=== PATIENT | female | born 1965 | race Caucasian/White ===

== ENCOUNTER 2025-02-07 12:27 | Emergency (ER) | payer MEDICAID, SELFPAY ==
[2025-02-07] VITALS (9 sets, daily range): BP systolic 103–144; BP diastolic 68–113; PULSE 76–98; RESP 16–19; TEMP 36.6–36.8; O2SAT 93–100; BMI 29.2
--- NOTE | 2025-02-07 14:12 | ED_ITS ---
Discharge Plan Disposition Patient Disposition: Home, Self-Care Condition: Fair Prescriptions Prescriptions: New hydrocodone-acetaminophen 5-325 mg tablet 1 tab PO Q12H PRN (Reason: pain) Qty: 10 0RF Referrals Follow up/Referrals: Provider,MD Shannan [Primary Care Provider] - See instructions Wagner Mazariegos MD [Physician] - See instructions Activity Restrictions/Add. Instructions Additional Instructions/Restrictions: Dr. Mazariegos Friday 10am Clinical Impressions Clinical Impression: Mass of right lung, Back pain, COPD (chronic obstructive pulmonary disease) Print Language Print Language: Hungarian Discharge ED Provider: Niru Rivera General Adult HPI <JAIME Giles - Last Filed: 02/07/25 17:48> General Chief complaint: PAIN Stated complaint: AO 12/2024 Neck/Back pain, SOB Time Seen by Provider: 02/07/25 14:12 Mode of Arrival: Ambulatory Source of Information: Patient Limitations: No Limitations History of Present Illness HPI narrative: 59-year-old female presents to the emergency department with a 1 month history of worsening shortness of breath, neck pain and back pain after a fall that occurred in December 2024, unknown day. Patient describes it as a mechanical fall, however patient is somewhat of a poor historian, and does not regularly seek health care, has data deficient history of COPD, only on albuterol inhaler, been taking as prescribed/as needed, she is current everyday smoker, she describes the fall as she was coughing , when she fell out of her chair face planting on the ground , she denies any fever chills chest pain, does endorse some swelling around her supraclavicular region, and worsening shortness of breath outside of her baseline, as well as worsening neck and back pain outside of her baseline. Other past medical history consistent with previous tubal ligation and previous cholecystectomy, patient denies any abdominal pain nausea vomiting constipation diarrhea, no hematuria hematochezia melena hemoptysis, denies any other urinary type symptomatology. Patient denies any alcohol or drug use initial triage vitals unremarkable. Onset (ago): month(s) Related Data Previous Rx's ?Medication ?Instructions ?Recorded hydrocodone 5 mg-acetaminophen 325 1 tab PO Q12H PRN pain #10 tabs 02/07/25 mg tablet Allergies Allergy/AdvReac Type Severity Reaction Status Date / Time Penicillins Allergy Swelling Verified 02/07/25 14:11 of Lip/Tongue/Throat aspirin AdvReac Vomiting Verified 02/07/25 14:11 PFSH <JAIME Giles - Last Filed: 02/07/25 17:48> [facility] Disclaimer: The information contained in this section may have been updated after the patient was seen, as this information can be updated by other users. Social History (Updated 02/07/25 @ 17:48 by JAIME Giles) Smoking Status: Current every day smoker alcohol intake: never current occupational status: other Travel in the last 8 weeks?: None Have you lived/traveled outside [place] in past 30 days?: No Contact w/someone who lives/traveled outside US past 30 days?: No Exposure to someone with infectious disease in past 14 days?: No Do you have a fever (greater than 100.4 F or 38 C)?: No Have you tested positive for COVID-19?: No Exposed to someone with COVID-19 in past 14 days?: No Do you have a sore throat?: No Do you have a cough?: No Do you have any weakness?: No Do you have any diarrhea?: No Are you experiencing any unusual bleeding?: No Do you have any muscle aches/pain?: No Do you have any abdominal pain?: No Are you experiencing loss of taste or smell?: No <JAIME Giles - Last Filed: 02/07/25 17:48> ROS Obtained: Yes All systems reviewed & no additional complaints except as documented Physical Exam <JAIME Giles - Last Filed: 02/07/25 17:48> General General appearance: alert and in no apparent distress Head Head exam: atraumatic and normocephalic Eye Eye exam: Present PERRL and EOMI ENT ENT exam: Present mucous membranes moist Neck Neck exam: Present lymphadenopathy and other (There is some what appears to be some supraclavicular lymphadenopathy/area of raised lesion noted bilaterally left worse than right,); Absent tenderness Chest Chest inspection: Present normal inspection and symmetric chest wall rise Respiratory Respiratory exam: Present normal lung sounds bilaterally and wheezes; Absent respiratory distress Cardiovascular Cardiovascular exam: Present regular rate and normal rhythm Abdominal Exam Abdominal exam: Present soft; Absent tenderness, guarding, rebound or rigidity Extremities Exam Extremities exam: Present normal inspection Back Exam Back exam: Present full ROM, tenderness and paraspinal tenderness Comment: There is paraspinal tenderness noted to the mid thoracic spine and lower lumbar spine, negative spinal tenderness to palpation to the cervical T-spine or L- spine no step-offs or deformities Neurological Exam Neurological exam: Present alert and oriented X3 Psychiatric Psychiatric exam: Present normal affect Skin Skin exam: Present warm and dry Medical Decision Making <JAIME Giles - Last Filed: 02/07/25 17:48> Medical Records Medical records reviewed: Yes I reviewed the patient's medical records. Screening: Per USPSTF and CDC recommendations, given the prevalence of disease in our region, it is our hospital?s policy to screen for HIV and viral Hepatitis for all patients aged 18 and over and those with ongoing risk factors. Enzo Inquiry Pt receiving controlled substance: Yes Enzo was queried for this patient: Yes Risks and benefits of using a controlled substance: were discussed with pt by me Vital Signs: 02/07/25 13:33 02/07/25 14:11 02/07/25 14:18 Temperature 98 F Temperature Source Oral Pulse Rate 82 79 Pulse Rate [Left] 85 Respiratory Rate 18 Blood Pressure 137/78 142/78 H Blood Pressure [Right Arm] 137/78 Blood Pressure Mean [Right Arm] 97 Blood Pressure Source Automatic Cuff Automatic Cuff Blood Pressure Source [Right Arm] Automatic Cuff Blood Pressure Position Sitting Blood Pressure Position [Right Arm] Sitting 02 Sat by Pulse Oximetry 100 98 Oxygen Delivery Method Room Air Room Air 02/07/25 15:40 02/07/25 16:16 02/07/25 17:18 Temperature Temperature Source Pulse Rate 77 80 94 H Pulse Rate [Left] Respiratory Rate 16 Blood Pressure 127/79 103/68 L 109/76 L Blood Pressure [Right Arm] Blood Pressure Mean [Right Arm] Blood Pressure Source Automatic Cuff Blood Pressure Source [Right Arm] Blood Pressure Position Sitting Blood Pressure Position [Right Arm] 02 Sat by Pulse Oximetry 99 93 L 97 Oxygen Delivery Method Room Air Room Air Room Air 02/07/25 17:24 02/07/25 17:31 02/07/25 17:50 Temperature 98.2 F Temperature Source Oral Pulse Rate 98 H 76 81 Pulse Rate [Left] Respiratory Rate 19 Blood Pressure 126/82 140/113 H 144/98 H Blood Pressure [Right Arm] Blood Pressure Mean [Right Arm] Blood Pressure Source Automatic Cuff Blood Pressure Source [Right Arm] Blood Pressure Position Blood Pressure Position [Right Arm] 02 Sat by Pulse Oximetry 98 98 Oxygen Delivery Method Room Air Room Air Room Air Lab Data Lab results reviewed: Yes I reviewed the patient's lab results. Lab Results 02/07/25 14:25: WBC 11.7 H, RBC 4.31, Hgb 13.6, Hct 39.9, MCV 92.6, MCH 31.6 H, MCHC 34.1, RDW 13.5, Plt Count 323, MPV 10.0, Neut % (Auto) 72.8, Lymph % (Auto) 16.6, Hutchinson % (Auto) 7.6, Eos % (Auto) 0.7, Baso % (Auto) 0.9, Neut # (Auto) 8.5 H, Lymph # (Auto) 1.9, Hutchinson # (Auto) 0.9, Eos # (Auto) 0.1, Baso # (Auto) 0.1, S odium 132 L, Potassium 4.1, Chloride 91 L, Carbon Dioxide 36 H, Anion Gap 9.1, BUN 11, Creatinine 0.80, Estimated Creat Clear 91, Estimated GFR 74, Est GFR ( Amer) 89, Glucose 203 H, Calcium 10.6 H, Magnesium 1.4 L, Total Bilirubin 0.8, AST 37 H, ALT 28, Alkaline Phosphatase 148 H, Troponin I < 0.01, NT-Pro-B Natriuret Pep 307 H, Total Protein 7.8, Albumin 4.3, Globulin 3.5 H, Albumin/Globulin Ratio 1.2, HCV Ab ARIA w/Rflx PCR Qn Negative, HIV Ag/Ab Combo Qual Negative 02/07/25 14:25 02/07/25 14:25 Orders (Tests/Meds): ED MEDICATIONS Discontinued Medications Generic Name Dose Route Start Last Admin Trade Name Freq PRN Reason Stop Dose Admin Iopamidol 75 ml 02/07/25 15:50 02/07/25 15:53 Iopamidol-370 (76%);100ml Bottle IV 02/07/25 15:51 75 ml ONCE ONE Administration Sodium Chloride 10 ml 02/07/25 15:50 02/07/25 15:53 Sodium Chloride 0.9% 10ml Syr (Rad Only) IV 03/09/25 15:49 10 ml NEEDED PRN Administration Maintain IV Site ORDERS Category Date Time Status CT cervical spine wo con Stat Cat Scan 02/07/25 14:[address] chest w con Stat Cat Scan 02/07/25 14:[address] head/brain wo con Stat Cat Scan 02/07/25 14:[address] lumbar spine wo con Stat Cat Scan 02/07/25 14:[address] thoracic spine wo con Stat Cat Scan 02/07/25 14:19 Completed XR chest portable Stat Exams 02/07/25 14:19 Taken Complete Blood Count Auto Diff Stat Lab 02/07/25 14:25 Completed Comprehensive Metabolic Panel Stat Lab 02/07/25 14:25 Completed Cytology Routine Lab 02/07/25 17:14 Ordered HIV Combo Stat Lab 02/07/25 14:25 Completed Hepatitis C Ab Qual. W/ RFX Stat Lab 02/07/25 14:25 Completed Magnesium Stat Lab 02/07/25 14:25 Completed NT Pro Brain Natriuretic Pep. Stat Lab 02/07/25 14:25 Completed Troponin I Stat Lab 02/07/25 14:25 Completed Medical Decision Narrative: 59-year-old female presents the emergency department with shortness of air neck and back pain, and other medical complaints see HPI for detail past medical history, differential diagnose include but not limited to, cervicalgia, acute thoracic myofascial strain, acute lumbar sacral strain, COPD exacerbation, pneumonia, lung malignancy, metastatic disease, pathological compression fracture, cardiac arrhythmia, electrolyte disturbance among others. I discussed this patient's case with attending physician Will obtain basic laboratory studies, chest x-ray, CT chest with contrast, CT cervical spine without, T-spine without, L-spine without and head without contrast, will obtain EKG, magnesium level, troponin, proBNP. I reviewed the patient's EKG at 1413, NSR 82 bpm PA interval QT interval within normal limits there is no STEMI. There is possible old Q wave in V3 V4. CBC is notable for leukocytosis 11.7 otherwise unremarkable. CMP is notable for mild hyponatremia at 132, hypercapnia at 36, hyperglycemia 203, hypercalcemia 10.6, hypomagnesia 1.4, ALP is elevated, at 148 which is normal, troponin within normal limits, proBNP is minimally elevated within normal limits, at 307. I reviewed the patient's CT head without contrast on the corresponding radiologic report, there is no acute intracranial abnormality I reviewed the patient's CT cervical spine without contrast along the corresponding radiologic report, no evidence of acute traumatic injury, diffuse cervical spondylosis, right upper lung airspace disease, bilateral supraclavicular mediastinal lymphadenopathy and mass. I reviewed the patient's CT lumbar spine without contrast along the corresponding radiologic report, superior endplate compression fracture at L4 age-indeterminate no canal compromise noted, lucency seen throughout multiple vertebral bodies and sacrum worrisome for possible metastatic disease, correlate with MRI for further characterization. Reviewed the patient's CT thoracic spine without contrast on the corresponding radiologic report, infiltrating mediastinal mass supraclavicular bilateral lymphadenopathy, right upper lobe airspace opacity, see concurrently from chest CT, no acute fracture or dislocation noted, several subtle lucencies are seen within multiple thoracic vertebral bodies these include T12 and L1 possible metastatic disease. I reviewed the patient's CT chest with contrast along the corresponding radiologic report, large infiltrating mediastinal mass with right hilar and bilateral supraclavicular adenopathy worrisome for neoplasm possible lymphoma, the mass severely narrows the upper lobe pulmonary artery, and it may be occluded there is also narrowing of the lower lobe arteries although these appear patent, no evidence of pulmonary embolism noted, the mass also narrows the or occludes right upper lobe bronchus, patchy diffuse airspace disease seen in the right upper and right middle lobe which may be postobstructive in nature, possible thrombus in the left jugular vein that is nonocclusive correlate with ultrasound as clinically indicated, moderate right-sided pleural effusion. I will reach out to on-call inspection and testing supervisor for further recommendations. Attending physician , spoke to the on-call inspection and testing supervisor , at approximately 5:15 PM, he recommends possible ED thoracentesis for expedition of the patient's care with moderate pleural effusion, will send pleural fluid off, he believes patient can follow-up as outpatient for new diagnosis of lung mass, with possible diffuse metastatic disease since she is hemodynamically stable at this time. I along with the attending physician discussed need for thoracentesis with the patient at the bedside, patient declined at this time she states that she would like to go home to my dog , and would like to pursue outpatient follow-up with inspection and testing supervisor, this was relayed to pulmonology, pulmonology will see the patient this upcoming week. Patient was given strict ED return precautions, patient will follow-up with inspection and testing supervisor in the outpatient clinic as well as PCP, will send in p.o. narcotic for pain per attending physician for pain and new onset cancer diagnosis, patient voiced understanding of the current treatment plan/discharge plan. <Niru Rivera, DO - Last Filed: 02/07/25 20:43> Vital Signs: 02/07/25 13:33 02/07/25 14:11 02/07/25 14:18 Temperature 98 F Temperature Source Oral Pulse Rate 82 79 Pulse Rate [Left] 85 Respiratory Rate 18 Blood Pressure 137/78 142/78 H Blood Pressure [Right Arm] 137/78 Blood Pressure Mean [Right Arm] 97 Blood Pressure Source Automatic Cuff Automatic Cuff Blood Pressure Source [Right Arm] Automatic Cuff Blood Pressure Position Sitting Blood Pressure Position [Right Arm] Sitting 02 Sat by Pulse Oximetry 100 98 Oxygen Delivery Method Room Air Room Air 02/07/25 15:40 02/07/25 16:16 02/07/25 17:18 Temperature Temperature Source Pulse Rate 77 80 94 H Pulse Rate [Left] Respiratory Rate 16 Blood Pressure 127/79 103/68 L 109/76 L Blood Pressure [Right Arm] Blood Pressure Mean [Right Arm] Blood Pressure Source Automatic Cuff Blood Pressure Source [Right Arm] Blood Pressure Position Sitting Blood Pressure Position [Right Arm] 02 Sat by Pulse Oximetry 99 93 L 97 Oxygen Delivery Method Room Air Room Air Room Air 02/07/25 17:24 02/07/25 17:31 02/07/25 17:50 Temperature 98.2 F Temperature Source Oral Pulse Rate 98 H 76 81 Pulse Rate [Left] Respiratory Rate 19 Blood Pressure 126/82 140/113 H 144/98 H Blood Pressure [Right Arm] Blood Pressure Mean [Right Arm] Blood Pressure Source Automatic Cuff Blood Pressure Source [Right Arm] Blood Pressure Position Blood Pressure Position [Right Arm] 02 Sat by Pulse Oximetry 98 98 Oxygen Delivery Method Room Air Room Air Room Air Lab Data Lab Results 02/07/25 14:25: WBC 11.7 H, RBC 4.31, Hgb 13.6, Hct 39.9, MCV 92.6, MCH 31.6 H, MCHC 34.1, RDW 13.5, Plt Count 323, MPV 10.0, Neut % (Auto) 72.8, Lymph % (Auto) 16.6, Hutchinson % (Auto) 7.6, Eos % (Auto) 0.7, Baso % (Auto) 0.9, Neut # (Auto) 8.5 H, Lymph # (Auto) 1.9, Hutchinson # (Auto) 0.9, Eos # (Auto) 0.1, Baso # (Auto) 0.1, S odium 132 L, Potassium 4.1, Chloride 91 L, Carbon Dioxide 36 H, Anion Gap 9.1, BUN 11, Creatinine 0.80, Estimated Creat Clear 91, Estimated GFR 74, Est GFR ( Amer) 89, Glucose 203 H, Calcium 10.6 H, Magnesium 1.4 L, Total Bilirubin 0.8, AST 37 H, ALT 28, Alkaline Phosphatase 148 H, Troponin I < 0.01, NT-Pro-B Natriuret Pep 307 H, Total Protein 7.8, Albumin 4.3, Globulin 3.5 H, Albumin/Globulin Ratio 1.2, HCV Ab ARIA w/Rflx PCR Qn Negative, HIV Ag/Ab Combo Qual Negative Orders (Tests/Meds): ED MEDICATIONS Discontinued Medications Generic Name Dose Route Start Last Admin Trade Name Freq PRN Reason Stop Dose Admin Iopamidol 75 ml 02/07/25 15:50 02/07/25 15:53 Iopamidol-370 (76%);100ml Bottle IV 02/07/25 15:51 75 ml ONCE ONE Administration Sodium Chloride 10 ml 02/07/25 15:50 02/07/25 15:53 Sodium Chloride 0.9% 10ml Syr (Rad Only) IV 03/09/25 15:49 10 ml NEEDED PRN Administration Maintain IV Site ORDERS Category Date Time Status CT cervical spine wo con Stat Cat Scan 02/07/25 14:[address] chest w con Stat Cat Scan 02/07/25 14:[address] head/brain wo con Stat Cat Scan 02/07/25 14:[address] lumbar spine wo con Stat Cat Scan 02/07/25 14:[address] thoracic spine wo con Stat Cat Scan 02/07/25 14:19 Completed XR chest portable Stat Exams 02/07/25 14:19 Taken Complete Blood Count Auto Diff Stat Lab 02/07/25 14:25 Completed Comprehensive Metabolic Panel Stat Lab 02/07/25 14:25 Completed Cytology Routine Lab 05/12/25 17:14 Ordered HIV Combo Stat Lab 02/07/25 14:25 Completed Hepatitis C Ab Qual. W/ RFX Stat Lab 02/07/25 14:25 Completed Magnesium Stat Lab 02/07/25 14:25 Completed NT Pro Brain Natriuretic Pep. Stat Lab 02/07/25 14:25 Completed Troponin I Stat Lab 02/07/25 14:25 Completed Medical Decision Narrative: 59-year-old female presents the emergency department with shortness of air neck and back pain, and other medical complaints see HPI for detail past medical history, differential diagnose include but not limited to, cervicalgia, acute thoracic myofascial strain, acute lumbar sacral strain, COPD exacerbation, pneumonia, lung malignancy, metastatic disease, pathological compression fracture, cardiac arrhythmia, electrolyte disturbance among others. I discussed this patient's case with attending physician Will obtain basic laboratory studies, chest x-ray, CT chest with contrast, CT cervical spine without, T-spine without, L-spine without and head without contrast, will obtain EKG, magnesium level, troponin, proBNP. I reviewed the patient's EKG at 1413, NSR 82 bpm PA interval QT interval within normal limits there is no STEMI. There is possible old Q wave in V3 V4. CBC is notable for leukocytosis 11.7 otherwise unremarkable. CMP is notable for mild hyponatremia at 132, hypercapnia at 36, hyperglycemia 203, hypercalcemia 10.6, hypomagnesia 1.4, ALP is elevated, at 148 which is normal, troponin within normal limits, proBNP is minimally elevated within normal limits, at 307. I reviewed the patient's CT head without contrast on the corresponding radiologic report, there is no acute intracranial abnormality I reviewed the patient's CT cervical spine without contrast along the corresponding radiologic report, no evidence of acute traumatic injury, diffuse cervical spondylosis, right upper lung airspace disease, bilateral supraclavicular mediastinal lymphadenopathy and mass. I reviewed the patient's CT lumbar spine without contrast along the corresponding radiologic report, superior endplate compression fracture at L4 age-indeterminate no canal compromise noted, lucency seen throughout multiple vertebral bodies and sacrum worrisome for possible metastatic disease, correlate with MRI for further characterization. Reviewed the patient's CT thoracic spine without contrast on the corresponding radiologic report, infiltrating mediastinal mass supraclavicular bilateral lymphadenopathy, right upper lobe airspace opacity, see concurrently from chest CT, no acute fracture or dislocation noted, several subtle lucencies are seen within multiple thoracic vertebral bodies these include T12 and L1 possible metastatic disease. I reviewed the patient's CT chest with contrast along the corresponding radiologic report, large infiltrating mediastinal mass with right hilar and bilateral supraclavicular adenopathy worrisome for neoplasm possible lymphoma, the mass severely narrows the upper lobe pulmonary artery, and it may be occluded there is also narrowing of the lower lobe arteries although these appear patent, no evidence of pulmonary embolism noted, the mass also narrows the or occludes right upper lobe bronchus, patchy diffuse airspace disease seen in the right upper and right middle lobe which may be postobstructive in nature, possible thrombus in the left jugular vein that is nonocclusive correlate with ultrasound as clinically indicated, moderate right-sided pleural effusion. I will reach out to on-call inspection and testing supervisor for further recommendations. Attending physician , spoke to the on-call inspection and testing supervisor , at approximately 5:15 PM, he recommends possible ED thoracentesis for expedition of the patient's care with moderate pleural effusion, will send pleural fluid off, he believes patient can follow-up as outpatient for new diagnosis of lung mass, with possible diffuse metastatic disease since she is hemodynamically stable at this time. I along with the attending physician discussed need for thoracentesis with the patient at the bedside, patient declined at this time she states that she would like to go home to my dog , and would like to pursue outpatient follow-up with inspection and testing supervisor, this was relayed to pulmonology, pulmonology will see the patient this upcoming week. Patient was given strict ED return precautions, patient will follow-up with inspection and testing supervisor in the outpatient clinic as well as PCP, will send in p.o. narcotic for pain per attending physician for pain and new onset cancer diagnosis, patient voiced understanding of the current treatment plan/discharge plan. DO Miguel: I was consulted by the RAAD, and we discussed the complexity of the problems being addressed. I approved the treatment and management plan for this patient's care in the emergency department, thus performing a substantive portion of the medical decision making. I spoke with Dr. Mazariegos who recommended thoracentesis here to help expedite diagnosis and care given new diagnosis of mass with likely malignant effusion. I discussed this with the patient at length, however she declined stating that she needs to go home to her dog. She states she will follow-up and do these things on an outpatient basis. I did provide the patient with a short course of narcotic pain medication given cancer related pain as well as instructions for close follow-up with pulmonology. She was discharged with strict return precautions Niru Rivera DO <Alli Mora MD - Last Filed: 02/07/25 23:34> Vital Signs: 02/07/25 13:33 02/07/25 14:11 02/07/25 14:18 Temperature 98 F Temperature Source Oral Pulse Rate 82 79 Pulse Rate [Left] 85 Respiratory Rate 18 Blood Pressure 137/78 142/78 H Blood Pressure [Right Arm] 137/78 Blood Pressure Mean [Right Arm] 97 Blood Pressure Source Automatic Cuff Automatic Cuff Blood Pressure Source [Right Arm] Automatic Cuff Blood Pressure Position Sitting Blood Pressure Position [Right Arm] Sitting 02 Sat by Pulse Oximetry 100 98 Oxygen Delivery Method Room Air Room Air 02/07/25 15:40 02/07/25 16:16 02/07/25 17:18 Temperature Temperature Source Pulse Rate 77 80 94 H Pulse Rate [Left] Respiratory Rate 16 Blood Pressure 127/79 103/68 L 109/76 L Blood Pressure [Right Arm] Blood Pressure Mean [Right Arm] Blood Pressure Source Automatic Cuff Blood Pressure Source [Right Arm] Blood Pressure Position Sitting Blood Pressure Position [Right Arm] 02 Sat by Pulse Oximetry 99 93 L 97 Oxygen Delivery Method Room Air Room Air Room Air 02/07/25 17:24 02/07/25 17:31 02/07/25 17:50 Temperature 98.2 F Temperature Source Oral Pulse Rate 98 H 76 81 Pulse Rate [Left] Respiratory Rate 19 Blood Pressure 126/82 140/113 H 144/98 H Blood Pressure [Right Arm] Blood Pressure Mean [Right Arm] Blood Pressure Source Automatic Cuff Blood Pressure Source [Right Arm] Blood Pressure Position Blood Pressure Position [Right Arm] 02 Sat by Pulse Oximetry 98 98 Oxygen Delivery Method Room Air Room Air Room Air Lab Data Lab Results 02/07/25 14:25: WBC 11.7 H, RBC 4.31, Hgb 13.6, Hct 39.9, MCV 92.6, MCH 31.6 H, MCHC 34.1, RDW 13.5, Plt Count 323, MPV 10.0, Neut % (Auto) 72.8, Lymph % (Auto) 16.6, Hutchinson % (Auto) 7.6, Eos % (Auto) 0.7, Baso % (Auto) 0.9, Neut # (Auto) 8.5 H, Lymph # (Auto) 1.9, [place]inson # (Auto) 0.9, Eos # (Auto) 0.1, Baso # (Auto) 0.1, S odium 132 L, Potassium 4.1, Chloride 91 L, Carbon Dioxide 36 H, Anion Gap 9.1, BUN 11, Creatinine 0.80, Estimated Creat Clear 91, Estimated GFR 74, Est GFR ( Amer) 89, Glucose 203 H, Calcium 10.6 H, Magnesium 1.4 L, Total Bilirubin 0.8, AST 37 H, ALT 28, Alkaline Phosphatase 148 H, Troponin I < 0.01, NT-Pro-B Natriuret Pep 307 H, Total Protein 7.8, Albumin 4.3, Globulin 3.5 H, Albumin/Globulin Ratio 1.2, HCV Ab ARIA w/Rflx PCR Qn Negative, HIV Ag/Ab Combo Qual Negative Orders (Tests/Meds): ED MEDICATIONS Discontinued Medications Generic Name Dose Route Start Last Admin Trade Name Freq PRN Reason Stop Dose Admin Iopamidol 75 ml 02/07/25 15:50 02/07/25 15:53 Iopamidol-370 (76%);100ml Bottle IV 02/07/25 15:51 75 ml ONCE ONE Administration Sodium Chloride 10 ml 02/07/25 15:50 02/07/25 15:53 Sodium Chloride 0.9% 10ml Syr (Rad Only) IV 03/09/25 15:49 10 ml NEEDED PRN Administration Maintain IV Site ORDERS Category Date Time Status CT cervical spine wo con Stat Cat Scan 02/07/25 14:[address] chest w con Stat Cat Scan 02/07/25 14:[address] head/brain wo con Stat Cat Scan 02/07/25 14:[address] lumbar spine wo con Stat Cat Scan 02/07/25 14:[address] thoracic spine wo con Stat Cat Scan 02/07/25 14:19 Completed XR chest portable Stat Exams 02/07/25 14:19 Taken Complete Blood Count Auto Diff Stat Lab 02/07/25 14:25 Completed Comprehensive Metabolic Panel Stat Lab 02/07/25 14:25 Completed Cytology Routine Lab 02/07/25 17:14 Ordered HIV Combo Stat Lab 02/07/25 14:25 Completed Hepatitis C Ab Qual. W/ RFX Stat Lab 02/07/25 14:25 Completed Magnesium Stat Lab 02/07/25 14:25 Completed NT Pro Brain Natriuretic Pep. Stat Lab 02/07/25 14:25 Completed Troponin I Stat Lab 02/07/25 14:25 Completed Medical Decision Narrative: I was consulted by the RAAD, and we discussed the complexity of the problems being addressed. I approve the treatment and management plan for this patient's care in the emergency department, thus performing a substantive portion of the medical decision making. Due to patient's symptoms of shortness of breath, back pain in the setting of lymphadenopathy, there is concern for cancer/metastatic disease as a source of patient's symptoms and exam findings. Agree with workup below that includes CT imaging, laboratory studies to evaluate these concerns further. Patient's care was handed off to Dr. Rivera prior to completion of his workup. Alli Mora MD 59-year-old female presents the emergency department with shortness of air neck and back pain, and other medical complaints see HPI for detail past medical history, differential diagnose include but not limited to, cervicalgia, acute thoracic myofascial strain, acute lumbar sacral strain, COPD exacerbation, pneumonia, lung malignancy, metastatic disease, pathological compression fracture, cardiac arrhythmia, electrolyte disturbance among others. I discussed this patient's case with attending physician Will obtain basic laboratory studies, chest x-ray, CT chest with contrast, CT cervical spine without, T-spine without, L-spine without and head without contrast, will obtain EKG, magnesium level, troponin, proBNP. I reviewed the patient's EKG at 1413, NSR 82 bpm PA interval QT interval within normal limits there is no STEMI. There is possible old Q wave in V3 V4. CBC is notable for leukocytosis 11.7 otherwise unremarkable. CMP is notable for mild hyponatremia at 132, hypercapnia at 36, hyperglycemia 203, hypercalcemia 10.6, hypomagnesia 1.4, ALP is elevated, at 148 which is normal, troponin within normal limits, proBNP is minimally elevated within normal limits, at 307. I reviewed the patient's CT head without contrast on the corresponding radiologic report, there is no acute intracranial abnormality I reviewed the patient's CT cervical spine without contrast along the corresponding radiologic report, no evidence of acute traumatic injury, diffuse cervical spondylosis, right upper lung airspace disease, bilateral supraclavicular mediastinal lymphadenopathy and mass. I reviewed the patient's CT lumbar spine without contrast along the corresponding radiologic report, superior endplate compression fracture at L4 age-indeterminate no canal compromise noted, lucency seen throughout multiple vertebral bodies and sacrum worrisome for possible metastatic disease, correlate with MRI for further characterization. Reviewed the patient's CT thoracic spine without contrast on the corresponding radiologic report, infiltrating mediastinal mass supraclavicular bilateral lymphadenopathy, right upper lobe airspace opacity, see concurrently from chest CT, no acute fracture or dislocation noted, several subtle lucencies are seen within multiple thoracic vertebral bodies these include T12 and L1 possible metastatic disease. I reviewed the patient's CT chest with contrast along the corresponding radiologic report, large infiltrating mediastinal mass with right hilar and bilateral supraclavicular adenopathy worrisome for neoplasm possible lymphoma, the mass severely narrows the upper lobe pulmonary artery, and it may be occluded there is also narrowing of the lower lobe arteries although these appear patent, no evidence of pulmonary embolism noted, the mass also narrows the or occludes right upper lobe bronchus, patchy diffuse airspace disease seen in the right upper and right middle lobe which may be postobstructive in nature, possible thrombus in the left jugular vein that is nonocclusive correlate with ultrasound as clinically indicated, moderate right-sided pleural effusion. I will reach out to on-call inspection and testing supervisor for further recommendations. Attending physician , spoke to the on-call inspection and testing supervisor , at approximately 5:15 PM, he recommends possible ED thoracentesis for expedition of the patient's care with moderate pleural effusion, will send pleural fluid off, he believes patient can follow-up as outpatient for new diagnosis of lung mass, with possible diffuse metastatic disease since she is hemodynamically stable at this time. I along with the attending physician discussed need for thoracentesis with the patient at the bedside, patient declined at this time she states that she would like to go home to my dog , and would like to pursue outpatient follow-up with inspection and testing supervisor, this was relayed to pulmonology, pulmonology will see the patient this upcoming week. Patient was given strict ED return precautions, patient will follow-up with inspection and testing supervisor in the outpatient clinic as well as PCP, will send in p.o. narcotic for pain per attending physician for pain and new onset cancer diagnosis, patient voiced understanding of the current treatment plan/discharge plan. DO Miguel: I was consulted by the RAAD, and we discussed the complexity of the problems being addressed. I approved the treatment and management plan for this patient's care in the emergency department, thus performing a substantive portion of the medical decision making. I spoke with Dr. Mazariegos who recommended thoracentesis here to help expedite diagnosis and care given new diagnosis of mass with likely malignant effusion. I discussed this with the patient at length, however she declined stating that she needs to go home to her dog. She states she will follow-up and do these things on an outpatient basis. I did provide the patient with a short course of narcotic pain medication given cancer related pain as well as instructions for close follow-up with pulmonology. She was discharged with strict return precautions Niru Rivera DO Critical Care <JAIME Giles - Last Filed: 02/07/25 17:48> Critical Care Time Critical Care Time: No
--- NOTE | 2025-02-07 14:12 | ECG_ITS ---
APPROVED REPORT Exam: Resting ECG HR:82 bpm ECG Measurements Heart Rate 82 AXES RI 120 P 75 QRSd 85 QRS 116 QT 376 T 72 QTc 415 Conclusion SINUS RHYTHM POSSIBLE RIGHT VENTRICULAR HYPERTROPHY [SOME/ALL OF: PROMINENT R IN V1, LATE TRANSITION, RAD, PRESLEY, SSS] POSSIBLE ANTERIOR MYOCARDIAL INFARCTION , PROBABLY OLD [30 ms Q WAVE IN V3/V4, OR R < 0.2 mV IN V4] ABNORMAL ECG UNCONFIRMED REPORT Electronically signed by : AMI WAGNER, 02/08/2025 01:44:24
--- NOTE | 2025-02-07 14:19 | CT_ITS ---
PROCEDURE INFORMATION: Exam: CT Head Without Contrast Exam date and time: 02/07/2025 3:41 PM Age: 59 years old Clinical indication: Injury or trauma; Blunt trauma (contusions or hematomas); Consciousness not specified; Injury details: Bl, supraclavicular lymphadenopathy, [id number]; Additional info: Fall, head trauma TECHNIQUE: Imaging protocol: Computed tomography of the head without contrast. Radiation optimization: All CT scans at this facility use at least one of these dose optimization techniques: automated exposure control; mA and/or kV adjustment per patient size (includes targeted exams where dose is matched to clinical indication); or iterative reconstruction. COMPARISON: No relevant prior studies available. FINDINGS: Brain: Normal. No hemorrhage. Unremarkable white matter. No mass effect. Cerebral ventricles: No ventriculomegaly. Paranasal sinuses: Visualized sinuses are unremarkable. No fluid levels. Mastoid air cells: Visualized mastoid air cells are well aerated. Bones: Unremarkable. No acute fracture. Soft tissues: Unremarkable. IMPRESSION: No acute intracranial abnormality.
--- NOTE | 2025-02-07 14:19 | CT_ITS ---
PROCEDURE INFORMATION: Exam: CT Thoracic Spine Without Contrast Exam date and time: 02/07/2025 3:49 PM Age: 59 years old Clinical indication: Injury or trauma; Fall; Blunt trauma (contusions or hematomas); Injury date: 1 mth ago; Additional info: SOA, bl, fall 1 mo ago. Lymphadenopathy TECHNIQUE: Imaging protocol: Computed tomography of the thoracic spine without contrast. Radiation optimization: All CT scans at this facility use at least one of these dose optimization techniques: automated exposure control; mA and/or kV adjustment per patient size (includes targeted exams where dose is matched to clinical indication); or iterative reconstruction. COMPARISON: CT CERVICAL SPINE WO CON 02/07/2025 3:49 PM FINDINGS: Bones/joints: No acute fracture or dislocation noted. Several subtle lucencies are seen in multiple thoracic vertebral bodies. These include T12 and L1. Soft tissues: Unremarkable. Lymph nodes: Infiltrating mediastinal mass. Supraclavicular bilateral lymphadenopathy. IMPRESSION: 1. Infiltrating mediastinal mass. Supraclavicular bilateral lymphadenopathy. Right upper lobe airspace opacity. See concurrently performed chest CT. 2. No acute fracture or dislocation noted. 3. Several subtle lucencies are seen in multiple thoracic vertebral bodies. These include T12 and L1. Possible metastatic disease.
--- NOTE | 2025-02-07 14:19 | CT_ITS ---
PROCEDURE INFORMATION: Exam: CT Lumbar Spine Without Contrast Exam date and time: 02/07/2025 3:49 PM Age: 59 years old Clinical indication: Injury or trauma; Fall; Blunt trauma (contusions or hematomas); Injury date: 1 mth ago; Additional info: SOA, bl, fall 1 mo ago. Lymphadenopathy TECHNIQUE: Imaging protocol: Computed tomography of the lumbar spine without contrast. Radiation optimization: All CT scans at this facility use at least one of these dose optimization techniques: automated exposure control; mA and/or kV adjustment per patient size (includes targeted exams where dose is matched to clinical indication); or iterative reconstruction. COMPARISON: CT THORACIC SPINE WO CON 02/07/2025 3:49 PM FINDINGS: Bones/joints: Superior endplate compression fracture L4 age indeterminate. There are some subtle lucency seen at multiple vertebral bodies as well as the sacrum, these are worrisome for lytic disease. Soft tissues: Unremarkable. IMPRESSION: 1. Superior endplate compression fracture L4, age indeterminate. No canal compromise noted. 2. Lucency seen throughout multiple vertebral bodies and the sacrum worrisome for possible metastatic disease, correlate with MRI for further characterization.
--- NOTE | 2025-02-07 14:19 | CT_ITS ---
PROCEDURE INFORMATION: Exam: CT Chest With Contrast; Diagnostic Exam date and time: 02/07/2025 3:54 PM Age: 59 years old Clinical indication: Dyspnea; Additional info: SOA, supraclavicular lymphadenopathy, [id number] TECHNIQUE: Imaging protocol: Diagnostic computed tomography of the chest with contrast. Radiation optimization: All CT scans at this facility use at least one of these dose optimization techniques: automated exposure control; mA and/or kV adjustment per patient size (includes targeted exams where dose is matched to clinical indication); or iterative reconstruction. Contrast material: ISOVUE; Contrast volume: 75 ml; Contrast route: IV; COMPARISON: CT CERVICAL SPINE WO CON 02/07/2025 3:49 PM FINDINGS: Lungs: Diffuse airspace disease is noted in the right upper and right middle lobe. This may be postobstructive in nature. The mass may occlude the right upper lobe bronchus. Pleural spaces: Moderate-sized right-sided pleural effusion. Heart: Coronary artery calcium is present.. No cardiomegaly. No pericardial effusion. Mediastinal space: Large superior mediastinal mass extending into the region of the right hilum currently this measures 14.8 cm longitudinally by 7.2 x 6.0 cm axially, this is predominantly soft tissue attenuation but there is evidence of focal calcification. Lymph nodes: Bilateral supraclavicular lymphadenopathy. These measure 2.7 cm on the right and 2.3 cm on the left. Right hilar lymphadenopathy. Vasculature: There is a filling defect in the left jugular vein that may represent partial the obstructing thrombus. The superior vena cava is stretched and significantly attenuated in its mid segment although it appears to be patent more distally. The right pulmonary artery is significantly attenuated by the mass with only small branches going into the right lower and right middle lobe non are seen extending into the right upper lobe. Bones/joints: Unremarkable. No acute fracture. Soft tissues: Unremarkable. IMPRESSION: 1. Large infiltrating mediastinal mass with right hilar and bilateral supraclavicular lymphadenopathy worrisome for neoplasm, possible lymphoma. 2. The mass severely narrows the upper lobe pulmonary artery in it may be occluded, there is also narrowing of the lower lobe arteries although these appear patent. No evidence of pulmonary embolus noted. 3. The mass also narrows the or occludes the right upper lobe bronchus. 4. Patchy diffuse airspace disease seen in the right upper and right middle lobe which may be postobstructive in nature. 5. Possible thrombus within the left jugular vein nonocclusive. Correlate with ultrasound as clinically indicated. 6. Moderate right-sided pleural effusion.
--- NOTE | 2025-02-07 14:19 | CT_ITS ---
PROCEDURE INFORMATION: Exam: CT Cervical Spine Without Contrast Exam date and time: 02/07/2025 3:49 PM Age: 59 years old Clinical indication: Injury or trauma; Blunt trauma; Injury details: Bl, supraclavicular lymphadenopathy, [id number]; Additional info: * TECHNIQUE: Imaging protocol: Computed tomography of the cervical spine without contrast. Radiation optimization: All CT scans at this facility use at least one of these dose optimization techniques: automated exposure control; mA and/or kV adjustment per patient size (includes targeted exams where dose is matched to clinical indication); or iterative reconstruction. COMPARISON: CT HEAD/BRAIN WO CON 02/07/2025 3:41 PM FINDINGS: Bones: Diffuse cervical spondylosis is noted. Hypertrophic changes of the facet present bilaterally. Discs/Spinal canal/Neural foramina: Narrowing of multiple intervertebral disc spaces are seen. Moderate neural foraminal narrowing is also noted. Lungs: Right upper lung airspace disease.. Vasculature: No obvious traumatic injury is seen. Soft tissues: Bilateral supraclavicular lymphadenopathy, these lymph nodes measure up to 2.4 cm. Infiltrating upper mediastinal mass is also present. IMPRESSION: 1. No evidence of acute traumatic injury. 2. Diffuse cervical spondylosis. 3. Right upper lung airspace disease. 4. Bilateral supraclavicular and mediastinal lymphadenopathy and mass.
[2025-02-07 14:39] LABS: Basophils # 0.1 K/mm3 (0-0.2); Basophils % 0.9 % (0.1-2.0); Eosinophils # 0.1 Kmm3 (0.0-0.4); Eosinophils % 0.7 % (0.1-12.0); Hematocrit 39.9 % (37.0-47.0); Hemoglobin 13.6 g/dL (12.2-16.2); Immature Granulocytes # 0.16 10^3uL; Immature Granulocytes % 1.4 %; Lymphocytes # 1.9 K/mm3 (0.7-4.5); Lymphocytes % 16.6 % (10-50); Mean Corpuscular HGB Conc 34.1 g/dL (31.8-35.4); Mean Corpuscular Hemoglobin 31.6 pg (27.0-31.2); Mean Corpuscular Volume 92.6 fl (81-99); Monocytes # 0.9 K/mm3 (0.1-1.0); Monocytes % 7.6 % (1.7-9.3); Neutrophils # 8.5 K/mm3 (1.8-7.8); Neutrophils % 72.8 % (37.0-80.0); Nucleated Red Blood Cells # 0 10^3/uL; Nucleated Red Blood Cells % 0 %; Platelet Count 323 K/mm3 (142-424); Red Blood Count 4.31 M/mm3 (4.20-5.40); Red Cell Distribution Width 13.5 % (11.5-17.5); Red Cell Distribution Width-SD 46.2 fL; White Blood Count 11.7 K/mm3 (4.8-10.8)
[2025-02-07 14:49] LABS: Albumin Level 4.3 g/dl (3.5-5.0); Chloride 91 mmol/L (98-107); Potassium 4.1 mmoL/L (3.5-5.1); Sodium 132 mmol/L (136-145)
[2025-02-07 14:51] LABS: Alanine Aminotransferase 28 U/L (12-78); Aspartate Amino Transferase 37 U/L (14-36); Blood Urea Nitrogen 11 mg/dl (7-17); Creatinine Clearance Estimated 91 mL/min (50-200); Estimated Glomerular Filt Rate 74 ml/min (>60); GFR (African American) 89 ML/MIN (>60)
[2025-02-07 14:52] LABS: Albumin/Globulin Ratio 1.2 (1.1-1.8); Alkaline Phosphatase 148 U/L (38-126); Anion Gap 9.1 mEq/L (5-15); Bilirubin,Total 0.8 mg/dl (0.2-1.3); Calcium 10.6 mg/dl (8.4-10.2); Carbon Dioxide 36 mmol/L (22.0-30.0); Globulin 3.5 g/dL (1.3-3.2); Glucose 203 mg/dl (74-100); Magnesium 1.4 mg/dl (1.6-2.3); Total Protein,Serum 7.8 g/dl (6.3-8.2)
[2025-02-07 15:01] LABS: NT Pro Brain Natriuretic Pep. 307 pg/mL (0-125)
[2025-02-07 15:06] LABS: Troponin I < 0.01 ng/ml (0.00-0.034)
[2025-02-07 15:34] LABS: HIV Combo NEGATIVE (Negative)
[2025-02-07 15:42] LABS: Hepatitis C Ab Qual. W/ RFX NEGATIVE (Negative)
[2025-02-07] MEDS: SODIUM CHLORIDE 0.9% 10ML SYR (RAD ONLY) 10 ML IV (15:53)
[2025-02-07] MEDS: IOPAMIDOL-370 (76%);100ML BOTTLE 75 ML IV (15:53)
--- NOTE | 2025-02-07 17:14 | PC.NURSE ---
Dr Rivera s/w Dr Mazariegos for pulmonary consult.
--- NOTE | 2025-02-07 17:30 | PC.NURSE ---
Pt placed on 2L NC due to oxygen saturation being 87%
--- NOTE | 2025-02-07 17:36 | PC.NURSE ---
Dr. Rivera speaking w/ pt at this time
--- NOTE | 2025-02-07 17:43 | PC.NURSE ---
Provider to bedside.
== END 2025-02-07 18:00 | disposition home or self-care (01) ==
PROVIDERS: Physician Assistant; Emergency Provider Emergency Medicine
DX: J90 Pleural effusion, not elsewhere classified (principal); C34.91 Malignant neoplasm of unspecified part of right bronchus or lung; R06.02 Shortness of breath; E87.1 Hypo-osmolality and hyponatremia; F17.210 Nicotine dependence, cigarettes, uncomplicated; Z11.59 Encounter for screening for other viral diseases; Z11.4 Encounter for screening for human immunodeficiency virus [HIV]
CPT/HCPCS: 70450; 71045; 71260; 72125; 72128; 72131; 80053; 83735; 83880; 84484; 85025; 86803; 87389; 93005; 99285; Q9967

== ENCOUNTER 2025-02-09 10:39 | Outpatient (CLI) | payer MEDICAID, SELFPAY | END 2025-02-09 23:59 | disposition home or self-care (01) | PROVIDERS: PCP Family Medicine; Visit Provider Internal Medicine Pulmonary Disease | DX: R91.8 Other nonspecific abnormal finding of lung field (principal) | CPT/HCPCS: 87070; 87205 ==

== ENCOUNTER 2025-02-11 08:34 | Outpatient (CLI) | payer MEDICAID, SELFPAY ==
--- NOTE | 2025-02-11 09:00 | US_ITS ---
FINAL REPORT CLINICAL HISTORY: Effusion -- RT SIDE -- 750 ML REMOVED -- WALKER SANDOVAL FINDINGS: ULTRASOUND-GUIDED THORACENTESIS HISTORY: Right pleuraleffusion. ATTENDING PHYSICIAN: Dr. Hill PHYSICIAN TELEMETRY TECHNICIAN: Walker Reis PA-C TECHNIQUE: Informed consent was obtained from the patient. The indications and complications were discussed with the patient prior to beginning the procedure. This included, but was not limited to pain, bleeding, infection, and pneumothorax requiring chest tube placement. The right back was then prepped and draped in sterile fashion. 1% Lidocaine was used for local anesthesia. Utilizing sonographic guidance, a standard thoracentesis needle and sheath were inserted into the pleural space and approximately 750 mL of pleural fluid was successfully removed without complication. The patient tolerated the procedure well. Sample sent to lab for pre-arch studies. IMPRESSION: Technically successful sonographic guided right-sidedthoracentesis as above. Reviewed, Interpreted and Dictated by Bella Hill MD Transcribed by JAIME Blakc Authenticated and [facility]
[2025-02-11 09:05] VITALS: BP 153/83; PULSE 82; RESP 20; TEMP 37.1; O2SAT 94; BMI 32.9
--- NOTE | 2025-02-11 09:32 | PC.NURSE ---
When checking in patient, the patient was asked the question of any thoughts of harming yourself or others? patient responded yes . All questions in the marshall severity suicide assessment were answered with a no from patient. This RN then asked the question again if she had any thoughts or harming yourself and she repeated yes . This RN then asked her what that question meant to her and patient responded when I am at home I get really stressed, noises bother me, and I cry. I am just glad I have my dog. But I dont want to kill myself This RN asked patient if she spoke to her PCP or a behavioral health specialist about any of these issues at home and she revealed that she has an appointment with [facility] and she would be discussing this with them. This RN offered to reach out to Behavioral Health to set up an appointment for as well and patient and her sister declined due to transportation issues. This RN then offered [facility] services to patient and she declined that as well. Patient will be coming back to post-op after radiology procedure and this RN will provide a community resources packet to patient and sister.
--- NOTE | 2025-02-11 10:02 | XR_ITS ---
FINAL REPORT CLINICAL HISTORY: post thora right side FINDINGS: PA and lateral views of the chest are obtained. There is no prior exam for comparison. The heart is normal in size. There is a large right paratracheal and right hilar mass. Small right pleural effusion is noted. The lungs are clear. There is no pneumothorax postthoracentesis. IMPRESSION: No pneumothorax postthoracentesis. Large right paratracheal and right hilar mass. Reviewed, Interpreted and Dictated by Bella Hill MD Transcribed by Teena Nunez Authenticated and [facility]
[2025-02-11 10:18] VITALS: BP 148/75; PULSE 90; RESP 18; TEMP 36.6; O2SAT 96
[2025-02-11 10:33] VITALS: BP 133/87; PULSE 83; RESP 16; O2SAT 97
[2025-02-11 10:48] VITALS: BP 135/74; PULSE 83; RESP 16; O2SAT 95
[2025-02-11 11:03] VITALS: BP 137/76; PULSE 84; RESP 16; O2SAT 96
[2025-02-11 12:02] LABS: Source, Body Fld. Pleural Fluid
[2025-02-11 12:04] LABS: Appearance,Body Fld. Cloudy; RBC,Body Fluid 4 cells/uL (< 10 X 10^3); TNC,Body Fluid 2163 cells/uL (< 1000); Volume,Body Fld. 1750 mL
[2025-02-11 13:32] LABS: Mononuclear WBCs,Body Fluid 84 %; Polynuclear WBC,Body Fluid 16 %
[2025-02-12 16:34] LABS: Albumin, Body Fluid 2.7 g/dL (Not Estab.); LD, Body Fluid 240 IU/L (.); Protein, Body Fluid 4.4 g/dL (.)
== END 2025-02-11 11:18 | disposition home or self-care (01) ==
PROVIDERS: PCP Internal Medicine Pulmonary Disease; Visit Provider Internal Medicine Pulmonary Disease
DX: J90 Pleural effusion, not elsewhere classified (principal); R06.02 Shortness of breath
CPT/HCPCS: 32555; 71046; 82042; 83615; 84155; 87070; 89051

== ENCOUNTER 2025-02-16 11:52 | Outpatient (CLI) | payer MEDICAID, SELFPAY ==
[2025-02-16 12:27] LABS: Basophils # 0.1 K/mm3 (0-0.2); Basophils % 0.8 % (0.1-2.0); Eosinophils # 0.1 Kmm3 (0.0-0.4); Eosinophils % 1.3 % (0.1-12.0); Hematocrit 43.5 % (37.0-47.0); Hemoglobin 14.1 g/dL (12.2-16.2); Immature Granulocytes # 0.32 10^3uL; Immature Granulocytes % 3.4 %; Lymphocytes # 1.5 K/mm3 (0.7-4.5); Lymphocytes % 15.7 % (10-50); Mean Corpuscular HGB Conc 32.4 g/dL (31.8-35.4); Mean Corpuscular Hemoglobin 31.1 pg (27.0-31.2); Mean Corpuscular Volume 95.8 fl (81-99); Mean Platelet Volume 10.1 fl (7.4-10.4); Monocytes # 0.7 K/mm3 (0.1-1.0); Monocytes % 7.7 % (1.7-9.3); Neutrophils # 6.7 K/mm3 (1.8-7.8); Neutrophils % 71.1 % (37.0-80.0); Nucleated Red Blood Cells # 0 10^3/uL; Nucleated Red Blood Cells % 0 %; Platelet Count 234 K/mm3 (142-424); Red Blood Count 4.54 M/mm3 (4.20-5.40); Red Cell Distribution Width 14.4 % (11.5-17.5); Red Cell Distribution Width-SD 50.4 fL; White Blood Count 9.5 K/mm3 (4.8-10.8)
[2025-02-16 12:45] LABS: Albumin Level 4.1 g/dl (3.5-5.0); Chloride 94 mmol/L (98-107); Sodium 136 mmol/L (136-145)
[2025-02-16 12:48] LABS: Alanine Aminotransferase 32 U/L (12-78); Albumin/Globulin Ratio 1.1 (1.1-1.8); Alkaline Phosphatase 149 U/L (38-126); Aspartate Amino Transferase 42 U/L (14-36); Bilirubin,Total 0.5 mg/dl (0.2-1.3); Blood Urea Nitrogen 22 mg/dl (7-17); Calcium 11.4 mg/dl (8.4-10.2); Carbon Dioxide 38 mmol/L (22.0-30.0); Estimated Glomerular Filt Rate 51 ml/min (>60); GFR (African American) 62 ML/MIN (>60); Globulin 3.6 g/dL (1.3-3.2); Glucose 237 mg/dl (74-100); Total Protein,Serum 7.7 g/dl (6.3-8.2); Triglycerides 325 mg/dl (30-150); VLDL Cholesterol 65 mg/dL (0-40)
[2025-02-16 12:49] LABS: HDL Cholesterol 62 mg/dl (40-60)
[2025-02-16 12:59] LABS: Direct LDL Cholesterol 172.09 mg/dL (100-129)
[2025-02-16 13:05] LABS: Chol/HDL Ratio 5.6 (1-3.5); Cholesterol 348 mg/dl (140-200)
[2025-02-16 14:04] LABS: Hemoglobin A1C 7.9 % (4.0-6.0)
== END 2025-02-16 23:59 | disposition home or self-care (01) ==
LOC: LAB 11:53
PROVIDERS: PCP Family Medicine; Visit Provider Family Medicine
DX: Z00.00 Encounter for general adult medical examination without abnormal findings (principal)
CPT/HCPCS: 36415; 80053; 80061; 83036; 85025

== ENCOUNTER 2025-02-18 08:38 | Outpatient (CLI) | payer MEDICAID, SELFPAY ==
[2025-02-18 08:56] VITALS: BMI 28.3
--- NOTE | 2025-02-18 09:00 | CT_ITS ---
FINAL REPORT CLINICAL HISTORY: LEFT SUPRACLAVICAL LYMPH NODE FINDINGS: CT GUIDED LEFT SUPRACLAVICULAR MASS BIOPSY. HISTORY: Mediastinal mass, left supraclavicular mass/lymph nodes. ATTENDING PHYSICIAN: Dr. Ardon. PHYSICIAN [employer]S [employer] HUMANITIES COUNCIL DIRECTOR: Nargis rCuz PA-C. PROCEDURE: After informed consent was obtained and a time-out was performed, the patient was prepped and draped in usual sterile fashion over the left supraclavicular region. Utilizing local anesthesia and sterile technique with a coaxial system, access to lesion was obtained. Five 18-gauge core biopsies were performed. Post biopsy films demonstrate no evidence of acute complication. CONSCIOUS SEDATION: 1 mg of IV Versed and 25 mcg of Fentanyl were administered. Continuous vital sign monitoring was used. An RN was present during the sedation process. Overall sedation time was 30 minutes. The patient tolerated procedure well and left the department in good condition. IMPRESSION: Status post CT guided biopsy of a left supraclavicular mass/lymph nodes without immediate complication. Reviewed, Interpreted and Dictated by Abbie Ardon MD Transcribed by Nargis Cruz PA-C Authenticated and . [facility]
[2025-02-18 09:12] VITALS: BP 141/80; PULSE 65; RESP 20; TEMP 36.2; O2SAT 92
[2025-02-18 09:29] LABS: Basophils # 0.1 K/mm3 (0-0.2); Basophils % 1.3 % (0.1-2.0); Eosinophils # 0.1 Kmm3 (0.0-0.4); Eosinophils % 0.9 % (0.1-12.0); Hematocrit 44.8 % (37.0-47.0); Hemoglobin 14.5 g/dL (12.2-16.2); Immature Granulocytes # 0.24 10^3uL; Immature Granulocytes % 2.8 %; Lymphocytes # 1.4 K/mm3 (0.7-4.5); Lymphocytes % 16.7 % (10-50); Mean Corpuscular HGB Conc 32.4 g/dL (31.8-35.4); Mean Corpuscular Volume 95.9 fl (81-99); Mean Platelet Volume 10.5 fl (7.4-10.4); Monocytes # 0.6 K/mm3 (0.1-1.0); Monocytes % 7.4 % (1.7-9.3); Neutrophils % 70.9 % (37.0-80.0); Nucleated Red Blood Cells # 0 10^3/uL; Nucleated Red Blood Cells % 0 %; Platelet Count 187 K/mm3 (142-424); Red Blood Count 4.67 M/mm3 (4.20-5.40); Red Cell Distribution Width 14.4 % (11.5-17.5); Red Cell Distribution Width-SD 50.2 fL; White Blood Count 8.4 K/mm3 (4.8-10.8)
[2025-02-18 09:35] LABS: Chloride 95 mmol/L (98-107); Sodium 136 mmol/L (136-145)
[2025-02-18 09:36] LABS: Potassium 4.1 mmoL/L (3.5-5.1)
[2025-02-18 09:38] LABS: Blood Urea Nitrogen 22 mg/dl (7-17); Creatinine Clearance Estimated 76 mL/min (50-200); Estimated Glomerular Filt Rate 64 ml/min (>60); GFR (African American) 78 ML/MIN (>60)
[2025-02-18 09:39] LABS: Anion Gap 8.1 mEq/L (5-15); Calcium 11.5 mg/dl (8.4-10.2); Carbon Dioxide 37 mmol/L (22.0-30.0); Glucose 207 mg/dl (74-100)
[2025-02-18 09:41] LABS: INR 1.05 (0.9-1.1); Prothrombin Time 11.6 seconds (10.1-12.5)
[2025-02-18 10:50] VITALS: BP 123/73; PULSE 69; RESP 16; O2SAT 93
[2025-02-18 11:05] VITALS: BP 110/71; PULSE 62; RESP 16; O2SAT 92
[2025-02-18 11:20] VITALS: BP 115/76; PULSE 70; RESP 16; O2SAT 92
[2025-02-18 11:35] VITALS: BP 134/89; PULSE 63; RESP 16; O2SAT 92
[2025-02-18 11:50] VITALS: BP 127/82; PULSE 66; RESP 18; O2SAT 93
== END 2025-02-18 12:00 | disposition home or self-care (01) ==
PROVIDERS: PCP Family Medicine; Visit Provider Internal Medicine Medical Oncology
DX: R59.0 Localized enlarged lymph nodes (principal); I82.C29 Chronic embolism and thrombosis of unspecified internal jugular vein
CPT/HCPCS: 21550; 77012; 80048; 85025; 85610; J2250; J3010

== ENCOUNTER 2025-02-20 19:11 | Emergency (ER) | payer MEDICAID, SELFPAY ==
[2025-02-20] VITALS (9 sets, daily range): BP systolic 123–154; BP diastolic 74–94; PULSE 61–78; RESP 11–19; TEMP 35.9; O2SAT 95–100; BMI 27.4
--- NOTE | 2025-02-20 19:30 | ECG_ITS ---
APPROVED REPORT Exam: Resting ECG HR:71 bpm ECG Measurements Heart Rate 71 AXES CO 130 P 52 QRSd 86 QRS 134 QT 326 T 0 QTc 349 Conclusion SINUS RHYTHM POSSIBLE RIGHT VENTRICULAR HYPERTROPHY [SOME/ALL OF: PROMINENT R IN V1, LATE TRANSITION, RAD, PRESLEY, SSS] POSSIBLE ANTERIOR MYOCARDIAL INFARCTION , PROBABLY OLD [30 ms Q WAVE IN V3/V4, OR R < 0.2 mV IN V4] ABNORMAL ECG Electronically signed by : ELIZABETH BENEDICT, 02/20/2025 23:25:50
--- NOTE | 2025-02-20 19:30 | XR_ITS ---
PROCEDURE INFORMATION: Exam: XR Chest Exam date and time: 02/20/2025 7:39 PM Age: 59 years old Clinical indication: Shortness of breath TECHNIQUE: Imaging protocol: Radiologic exam of the chest. Views: 1 view. COMPARISON: CT BIOPSY ST CHEST/NECK 02/18/2025 10:17 AM FINDINGS: Lungs: Right lung infiltrate. Pleural spaces: Right pleural effusion. Heart/Mediastinum: Unremarkable. No cardiomegaly. Bones/joints: Unremarkable. IMPRESSION: Right lung infiltrate. Right pleural effusion.
--- NOTE | 2025-02-20 19:43 | [facility].EDCP ---
Discharge Plan Disposition Patient Disposition: Xfer Short-Term Hosp Condition: Serious Prescriptions Prescriptions: No Action amoxicillin-pot clavulanate [Augmentin] 500-125 mg tablet 1 tab PO Q8H 10 Days Qty: 30 0RF enoxaparin [Lovenox] 80 mg/0.8 mL syringe 80 mg SQ Q12H 30 Days Qty: 48 1RF ipratropium-albuterol 0.5 mg-3 mg(2.5 mg base)/3 mL solution for nebulization 3 ml inhalation QID PRN (Reason: shortness of breath or wheezing) 90 Days Qty: 270 3RF hydrocodone-acetaminophen 5-325 mg tablet 1 tab PO Q12H PRN (Reason: pain) 30 Days Qty: 60 0RF fluticasone propionate 110 mcg/actuation HFA aerosol inhaler 1 puff inhalation BID 90 Days Qty: 12 3RF Stiolto Respimat 2.5-2.5 mcg/actuation mist 2 puff inhalation DAILY 90 Days Qty: 4 2RF Referrals Follow up/Referrals: Provider,Referral, MD [Primary Care Provider] - See instructions Activity Restrictions/Add. Instructions Additional Instructions/Restrictions: To the [facility] emergency department care of Dr. Hooker Clinical Impressions Clinical Impression: Postobstructive pneumonia, Malignant neoplastic disease, Pleural effusion, Hypercalcemia of malignancy, Tracheal deviation Stand Alone Forms Stand Alone Forms: Transfer Record - ED Print Language Print Language: Greenlandic Discharge ED Provider: Luis Plaza HPI <JAIME Saenz - Last Filed: 02/20/25 21:52> General Chief Complaint: Shortness of Breath/Dyspnea Stated Complaint: Mass On R Lung; SOA Time Seen by Provider: 02/20/25 19:43 Mode of Arrival: Ambulatory Source of Information: Patient Description of Symptoms (Recalled from ER Triage Doc. by RN): Pt presents with c/o shortness of breath and cough that started today. Pt states she has a congested cough. Pt states she recently had fluid drained from her lungs. Pt has had biopsy's completed from her neck, and patient states a mass was recently found in her lungs. History of Present Illness HPI narrative: Patient presents for evaluation of dyspnea. Patient states that she has had increasing dyspnea over the last 24 hours. Of note patient was recently diagnosed this month with a very large mediastinal mass and is currently undergoing workup for presumed metastatic cancer. At baseline patient does not require oxygen but does have a history of COPD. When she was diagnosed with the lung mass she also had a right pleural effusion that was drained. Patient was initially offered admission however elected to pursue outpatient management. Patient denies any fever chest pain hemoptysis hematochezia melena nausea vomit diarrhea. Patient states her dyspnea now is persistent even at rest which is new for her. Related Data Previous Rx's ?Medication ?Instructions ?Recorded amoxicillin 500 mg-potassium 1 tab PO Q8H 10 days #30 tabs 02/09/25 clavulanate 125 mg tablet (Augmentin) enoxaparin 80 mg/0.8 mL 80 mg (0.8 mL) SQ Q12H 30 days #48 02/09/25 subcutaneous syringe (Lovenox) mL ipratropium 0.5 mg-albuterol 3 mg 3 ml inhalation QID PRN shortness 02/09/25 (2.5 mg base)/3 mL nebulization of breath or wheezing 90 days #270 soln mL fluticasone propionate 110 1 puff inhalation BID 90 days #12 02/10/25 mcg/actuation HFA aerosol inhaler grams hydrocodone 5 mg-acetaminophen 325 1 tab PO Q12H PRN pain 30 days #60 02/16/25 mg tablet tabs tiotropium 2.5 mcg-olodaterol 2.5 2 puff inhalation DAILY 90 days #4 02/18/25 mcg/actuation mist for inhalation grams (Stiolto Respimat) Allergies Allergy/AdvReac Type Severity Reaction Status Date / Time Penicillins Allergy Swelling Verified 02/18/25 09:10 of Lip/Tongue/Throat aspirin AdvReac Vomiting Verified 02/18/25 09:10 [facility] <JAIME Saenz - Last Filed: 02/20/25 21:52> [facility] Disclaimer: The information contained in this section may have been updated after the patient was seen, as this information can be updated by other users. Medical History (Updated 02/20/25 @ 21:35 by JAIME Saenz) COPD (chronic obstructive pulmonary disease) Urinary tract infection Hyperlipidemia Lung cancer Venous thromboembolism Surgical History (Updated 02/18/25 @ 09:09 by Yuliya [facility], RN) History of thoracentesis History of cholecystectomy Family History Other Family history of cancer Social History Smoking Status: Never smoker smoking status stop date: couple weeks ago alcohol intake: never current occupational status: other Travel in the last 8 weeks?: None Have you lived/traveled outside US in past 30 days?: No Contact w/someone who lives/traveled outside US past 30 days?: No Exposure to someone with infectious disease in past 14 days?: No Do you have a fever (greater than 100.4 F or 38 C)?: No Have you tested positive for COVID-19?: No Exposed to someone with COVID-19 in past 14 days?: No Do you have a sore throat?: No Do you have a cough?: No Do you have any weakness?: No Do you have any diarrhea?: No Are you experiencing any unusual bleeding?: No Do you have any muscle aches/pain?: No Do you have any abdominal pain?: No Are you experiencing loss of taste or smell?: No Other Medical History Have you received the Flu Vaccine for this season: No Have you received the Pneumonia Vaccine: No <JAIME Saenz - Last Filed: 02/20/25 21:52> ROS Obtained: Yes Systems reviewed as appropriate & no additional complaints except as documented Physical Exam <JAIME Saenz - Last Filed: 02/20/25 21:52> General General appearance: alert Respiratory Respiratory exam: Present normal lung sounds bilaterally Cardiovascular Cardiovascular exam: Present regular rate Neurological Exam Neurological exam: Present alert and oriented X3 HEART Score <JAIME Saenz - Last Filed: 02/20/25 21:52> HEART Score HEART Score assessment performed?: Yes History (anamnesis): Slightly suspicious ECG: Non-specific disturbance Age: 45-65 years Risk factors: 3 or more risk factors Troponin: </= normal limit HEART Score: 4 <Luis Plaza MD - Last Filed: 02/20/25 23:32> HEART Score HEART Score: 4 Critical Care <JAIME Saenz - Last Filed: 02/20/25 21:52> Critical Care Time Critical Care Time: Yes Attestation: On 02/20/25, the high probability of a clinically significant, sudden or life threatening deterioration of the following system(s) required my full and direct attention, intervention and personal management. The time I documented below is in addition to time spent performing reported procedures but includes the following listed in this critical care notation. Total Time Total Critical Care Time: 30 Medical Decision Making <JAIME Saenz - Last Filed: 02/20/25 21:52> Medical Records Medical records reviewed: Yes I reviewed the patient's medical records. Enzo Inquiry Pt receiving controlled substance: No Vital Signs Vital Signs: 02/20/25 19:22 02/20/25 19:49 02/20/25 20:00 Temperature 96.7 F L Temperature Source Oral Pulse Rate 69 Pulse Rate [Right] 74 Respiratory Rate 18 14 15 Blood Pressure 131/79 149/94 H Blood Pressure [Right Arm] 123/74 Blood Pressure Mean [Right Arm] 90 Blood Pressure Source [Right Arm] Automatic Cuff Blood Pressure Position [Right Arm] Sitting 02 Sat by Pulse Oximetry 100 96 Oxygen Delivery Method Room Air 02/20/25 20:30 02/20/25 21:00 02/20/25 21:30 Temperature Temperature Source Pulse Rate Pulse Rate [Right] Respiratory Rate 11 L 12 13 Blood Pressure 154/82 H 140/81 140/81 Blood Pressure [Right Arm] Blood Pressure Mean [Right Arm] Blood Pressure Source [Right Arm] Blood Pressure Position [Right Arm] 02 Sat by Pulse Oximetry 96 97 97 Oxygen Delivery Method 02/20/25 22:06 Temperature Temperature Source Pulse Rate 67 Pulse Rate [Right] Respiratory Rate Blood Pressure Blood Pressure [Right Arm] Blood Pressure Mean [Right Arm] Blood Pressure Source [Right Arm] Blood Pressure Position [Right Arm] 02 Sat by Pulse Oximetry Oxygen Delivery Method Lab Data Lab results reviewed: Yes I reviewed the patient's lab results. Labs: Lab Results 02/20/25 19:00: WBC 8.4, RBC 4.47, Hgb 14.0, Hct 43.2, MCV 96.6, MCH 31.3 H, MCHC 32.4, RDW 14.3, Plt Count 183, MPV 10.2, Neut % (Auto) 74.4, Lymph % (Auto) 14.9, Forrest % (Auto) 6.6, Eos % (Auto) 0.6, Baso % (Auto) 1.1, Neut # (Auto) 6.3, Lymph # (Auto) 1.3, Forrest # (Auto) 0.6, Eos # (Auto) 0.1, Baso # (Auto) 0.1 02/20/25 19:51: VBG pH 7.37, VBG pCO2 53.7 H, VBG pO2 39.6, VBG HCO3 30.1 H, VBG Total CO2 31.8 H, VBG O2 Saturation 70.8 H, VBG Base Excess 4.8 H, VBG Lactic Acid 2.2 H 02/20/25 20:11: Sodium 137, Potassium 3.9, Chloride 99, Carbon Dioxide 37 H, Anion Gap 4.9 L, BUN 24 H, Creatinine 1.00, Estimated Creat Clear 66, Estimated GFR 57 L, Est GFR ( Amer) 69, Glucose 216 H, Calcium 11.0 H, Total Bilirubin 0.6, AST 49 H, ALT 37, Alkaline Phosphatase 131 H, Troponin I < 0.01, Total Protein 7.1, Albumin 3.9, Globulin 3.2, Albumin/Globulin Ratio 1.2 02/20/25 19:00 02/20/25 20:11 Response Orders (Tests/Meds): ED MEDICATIONS Discontinued Medications Generic Name Dose Route Start Last Admin Trade Name Freq PRN Reason Stop Dose Admin Albuterol/Ipratropium 9 ml 02/20/25 21:27 02/20/25 22:05 Ipratropium/Albuterol 3 Ml Neb IH 02/20/25 21:28 9 ml ONCE ONE Administration Azithromycin 500 mg 02/20/25 21:35 02/20/25 22:11 Azithromycin 250mg Tablet PO 02/20/25 21:36 500 mg ONCE ONE Administration Dexamethasone Sodium Phosphate 10 mg 02/20/25 21:27 02/20/25 21:33 Dexamethasone 4mg/Ml 5ml Mdv IV 02/20/25 21:28 10 mg ONCE ONE Administration Magnesium Sulfate 2 gm in 50 mls @ 50 mls/hr 02/20/25 21:27 02/20/25 21:33 Magnesium Sulfate 2gm/50ml Premix IV 02/20/25 22:26 50 mls/hr ONCE ONE Administration Ceftriaxone Sodium 1 gm/ 50 mls @ 100 mls/hr 02/20/25 21:45 02/20/25 22:11 Sodium Chloride IV 02/20/25 22:14 100 mls/hr ONCE ONE Administration Iopamidol 70 ml 02/20/25 20:38 02/20/25 20:44 Iopamidol-370 (76%);100ml Bottle IV 02/20/25 20:39 70 ml ONCE ONE Administration Sodium Chloride 50 ml 02/20/25 20:38 02/20/25 20:44 0.9 % Sodium Chloride 50 Ml Vial IV 02/20/25 20:39 50 ml ONCE ONE Administration Sodium Chloride 10 ml 02/20/25 20:38 02/20/25 20:44 Sodium Chloride 0.9% 10ml Syr (Rad Only) IV 02/20/25 20:39 10 ml ONCE ONE Administration ORDERS Category Date Time Status CT angio chest PE protocol Stat Cat Scan 02/20/25 19:44 Completed XR chest portable Stat Exams 02/20/25 19:30 Completed Complete Blood Count Auto Diff Stat Lab 02/20/25 19:00 Completed Comprehensive Metabolic Panel Stat Lab 02/20/25 20:11 Completed Troponin I Q3H Lab 02/21/25 01:30 Ordered Troponin I Stat Lab 02/20/25 20:11 Completed Venous Blood Gas Stat RT 02/20/25 19:51 Completed MDM Narrative Medical Decision Narrative: In summary patient is a 59-year-old female who presents to the emergency department for evaluation of dyspnea. Patient is hemodynamically stable on arrival with a blood pressure 123/74 pulse 74 normal sinus rhythm on the bedside monitor breathing 18 times a minute satting at 100% on room air upon arrival, slightly hypothermic at 96.7. Physical exam is remarkable for a well-nourished well-developed chronically ill-appearing is well-appearing much older than stated age appearing 59-year-old female who otherwise is in no acute distress. Breath sounds are clear in the left lung pinto however diminished air entry in the right and I do not hear adventitious sounds but I also do not hear hardly any breath sounds at all except maybe in the upper lung pinto. Differential diagnosis includes pleural effusion versus bronchial obstruction due to cancer versus PE versus COPD versus ACS etc. Initial workup will be conducted with hematologic labs VBG CT PE protocol.. Initial interventions include DuoNeb and Decadron. Initial workup reviewed by me shows that her white count is 8.4 hemoglobin hematocrit 14 and 43.2 with no neutrophilic shift, VBG shows a pH of 7.37 pCO2 53.7 VBG lactic acid 2.2 calcium is 11.0 which likely reflects hypercalcemia of malignancy as her albumin is normal in my informal interpretation of her CT imaging shows recollection of pleural fluid in the right chest along with a large mediastinal mass causing tracheal deviation to the left however there is no tracheal stenosis noted, the mass encases the right pulmonary artery, I do not see evidence of thrombus, patient has postobstructive pneumonia of the right middle lobe as the middle lobe bronchus is not visible. Please see radiology reads for formal interpretation. Given this I have initiated a conversation with the [facility] at 2130 guarding patient presentation GAR and management and Dr. Hooker has accepted the patient for further evaluation and care. <Luis Plaza MD - Last Filed: 02/20/25 23:32> Vital Signs Vital Signs: 02/20/25 19:22 02/20/25 19:49 02/20/25 20:00 Temperature 96.7 F L Temperature Source Oral Pulse Rate 69 Pulse Rate [Right] 74 Respiratory Rate 18 14 15 Blood Pressure 131/79 149/94 H Blood Pressure [Right Arm] 123/74 Blood Pressure Mean [Right Arm] 90 Blood Pressure Source [Right Arm] Automatic Cuff Blood Pressure Position [Right Arm] Sitting 02 Sat by Pulse Oximetry 100 96 Oxygen Delivery Method Room Air 02/20/25 20:30 02/20/25 21:00 02/20/25 21:30 Temperature Temperature Source Pulse Rate Pulse Rate [Right] Respiratory Rate 11 L 12 13 Blood Pressure 154/82 H 140/81 140/81 Blood Pressure [Right Arm] Blood Pressure Mean [Right Arm] Blood Pressure Source [Right Arm] Blood Pressure Position [Right Arm] 02 Sat by Pulse Oximetry 96 97 97 Oxygen Delivery Method 02/20/25 22:06 Temperature Temperature Source Pulse Rate 67 Pulse Rate [Right] Respiratory Rate Blood Pressure Blood Pressure [Right Arm] Blood Pressure Mean [Right Arm] Blood Pressure Source [Right Arm] Blood Pressure Position [Right Arm] 02 Sat by Pulse Oximetry Oxygen Delivery Method Lab Data Labs: Lab Results 02/20/25 19:00: WBC 8.4, RBC 4.47, Hgb 14.0, Hct 43.2, MCV 96.6, MCH 31.3 H, MCHC 32.4, RDW 14.3, Plt Count 183, MPV 10.2, Neut % (Auto) 74.4, Lymph % (Auto) 14.9, Forrest % (Auto) 6.6, Eos % (Auto) 0.6, Baso % (Auto) 1.1, Neut # (Auto) 6.3, Lymph # (Auto) 1.3, Forrest # (Auto) 0.6, Eos # (Auto) 0.1, Baso # (Auto) 0.1 02/20/25 19:51: VBG pH 7.37, VBG pCO2 53.7 H, VBG pO2 39.6, VBG HCO3 30.1 H, VBG Total CO2 31.8 H, VBG O2 Saturation 70.8 H, VBG Base Excess 4.8 H, VBG Lactic Acid 2.2 H 02/20/25 20:11: Sodium 137, Potassium 3.9, Chloride 99, Carbon Dioxide 37 H, Anion Gap 4.9 L, BUN 24 H, Creatinine 1.00, Estimated Creat Clear 66, Estimated GFR 57 L, Est GFR ( Amer) 69, Glucose 216 H, Calcium 11.0 H, Total Bilirubin 0.6, AST 49 H, ALT 37, Alkaline Phosphatase 131 H, Troponin I < 0.01, Total Protein 7.1, Albumin 3.9, Globulin 3.2, Albumin/Globulin Ratio 1.2 Response Orders (Tests/Meds): ED MEDICATIONS Discontinued Medications Generic Name Dose Route Start Last Admin Trade Name Alirezaq PRN Reason Stop Dose Admin Albuterol/Ipratropium 9 ml 02/20/25 21:27 02/20/25 22:05 Ipratropium/Albuterol 3 Ml Neb IH 02/20/25 21:28 9 ml ONCE ONE Administration Azithromycin 500 mg 02/20/25 21:35 02/20/25 22:11 Azithromycin 250mg Tablet PO 02/20/25 21:36 500 mg ONCE ONE Administration Dexamethasone Sodium Phosphate 10 mg 02/20/25 21:27 02/20/25 21:33 Dexamethasone 4mg/Ml 5ml Mdv IV 02/20/25 21:28 10 mg ONCE ONE Administration Magnesium Sulfate 2 gm in 50 mls @ 50 mls/hr 02/20/25 21:27 02/20/25 21:33 Magnesium Sulfate 2gm/50ml Premix IV 02/20/25 22:26 50 mls/hr ONCE ONE Administration Ceftriaxone Sodium 1 gm/ 50 mls @ 100 mls/hr 02/20/25 21:45 02/20/25 22:11 Sodium Chloride IV 02/20/25 22:14 100 mls/hr ONCE ONE Administration Iopamidol 70 ml 02/20/25 20:38 02/20/25 20:44 Iopamidol-370 (76%);100ml Bottle IV 02/20/25 20:39 70 ml ONCE ONE Administration Sodium Chloride 50 ml 02/20/25 20:38 02/20/25 20:44 0.9 % Sodium Chloride 50 Ml Vial IV 02/20/25 20:39 50 ml ONCE ONE Administration Sodium Chloride 10 ml 02/20/25 20:38 02/20/25 20:44 Sodium Chloride 0.9% 10ml Syr (Rad Only) IV 02/20/25 20:39 10 ml ONCE ONE Administration ORDERS Category Date Time Status CT angio chest PE protocol Stat Cat Scan 02/20/25 19:44 Completed XR chest portable Stat Exams 02/20/25 19:30 Completed Complete Blood Count Auto Diff Stat Lab 02/20/25 19:00 Completed Comprehensive Metabolic Panel Stat Lab 02/20/25 20:11 Completed Troponin I Q3H Lab 02/21/25 01:30 Ordered Troponin I Stat Lab 02/20/25 20:11 Completed Venous Blood Gas Stat RT 02/20/25 19:51 Completed MDM Narrative Medical Decision Narrative: In summary patient is a 59-year-old female who presents to the emergency department for evaluation of dyspnea. Patient is hemodynamically stable on arrival with a blood pressure 123/74 pulse 74 normal sinus rhythm on the bedside monitor breathing 18 times a minute satting at 100% on room air upon arrival, slightly hypothermic at 96.7. Physical exam is remarkable for a well-nourished well-developed chronically ill-appearing is well-appearing much older than stated age appearing 59-year-old female who otherwise is in no acute distress. Breath sounds are clear in the left lung pinto however diminished air entry in the right and I do not hear adventitious sounds but I also do not hear hardly any breath sounds at all except maybe in the upper lung pinto. Differential diagnosis includes pleural effusion versus bronchial obstruction due to cancer versus PE versus COPD versus ACS etc. Initial workup will be conducted with hematologic labs VBG CT PE protocol.. Initial interventions include DuoNeb and Decadron. Initial workup reviewed by me shows that her white count is 8.4 hemoglobin hematocrit 14 and 43.2 with no neutrophilic shift, VBG shows a pH of 7.37 pCO2 53.7 VBG lactic acid 2.2 calcium is 11.0 which likely reflects hypercalcemia of malignancy as her albumin is normal in my informal interpretation of her CT imaging shows recollection of pleural fluid in the right chest along with a large mediastinal mass causing tracheal deviation to the left however there is no tracheal stenosis noted, the mass encases the right pulmonary artery, I do not see evidence of thrombus, patient has postobstructive pneumonia of the right middle lobe as the middle lobe bronchus is not visible. Please see radiology reads for formal interpretation. Given this I have initiated a conversation with the [facility] at 2130 guarding patient presentation GAR and management and Dr. Hooker has accepted the patient for further evaluation and care. I was consulted by the [facility], and we discussed the complexity of the problems being addressed.I approved the treatment and management plan for this patient?s care in the Emergency Department, thus performing a substantive portion of the medical decision making.Signed, MD BHUPENDRA MatamorosA
--- NOTE | 2025-02-20 19:44 | CT_ITS ---
PROCEDURE INFORMATION: Exam: CTA Chest With Contrast Exam date and time: 02/20/2025 8:38 PM Age: 59 years old Clinical indication: Dyspnea; Additional info: Dyspnea, mediastinal mass TECHNIQUE: Imaging protocol: Computed tomographic angiography of the chest with contrast. Exam focused on the arteries. 3D rendering (Not supervised by radiologist): MIP and/or 3D reconstructed images were created by the technologist. Radiation optimization: All CT scans at this facility use at least one of these dose optimization techniques: automated exposure control; mA and/or kV adjustment per patient size (includes targeted exams where dose is matched to clinical indication); or iterative reconstruction. Contrast material: ISO 370; Contrast volume: 70 ml; Contrast route: INTRAVENOUS (IV); COMPARISON: CT BIOPSY ST CHEST/NECK 02/18/2025 10:17 AM FINDINGS: Pulmonary arteries: Encasement of the right pulmonary artery. Aorta: Unremarkable. No aortic aneurysm. No aortic dissection. Lungs: Right apical infiltrate versus mass 3.6 cm. Patchy right upper lobe infiltrate. Pleural spaces: Large right pleural effusion. Heart: Unremarkable. No cardiomegaly. No pericardial effusion. Mediastinal space: Large mediastinal mass 6.8 x 7.5 x 12.5 cm, partially calcified. Lymph nodes: Bilateral supraclavicular adenopathy. Granulomatous infection such as histoplasmosis versus lymphoma versus small-cell malignancy. Bones/joints: Unremarkable. No acute fracture. Soft tissues: Unremarkable. IMPRESSION: 1. Bilateral supraclavicular adenopathy. Right apical infiltrate versus mass 3.6 cm. Patchy right upper lobe infiltrate. Large right pleural effusion. 2. Large mediastinal mass 6.8 x 7.5 x 12.5 cm, partially calcified. Granulomatous infection such as histoplasmosis versus lymphoma versus small-cell malignancy. 3. Postobstructive right middle lobe atelectasis. 4. Encasement and narrowing of the right pulmonary artery.
[2025-02-20 19:56] LABS: VBG Base Excess 4.8 mmol/L (-2.4-2.3); VBG HCO3 30.1 mmol/L (23-30); VBG Oxygen Saturation 70.8 % (50-70); VBG PH 7.37 mmol/L (7.31-7.41); VBG PO2 39.6 mmol/L (28-40); VBG Total CO2 31.8 mmol/L (23-27)
[2025-02-20 19:58] LABS: Lactate Venous 2.2 mmol/L (0.4-2.0); VBG PCO2 53.7 mmol/L (35-51)
[2025-02-20 20:03] LABS: Basophils # 0.1 K/mm3 (0-0.2); Basophils % 1.1 % (0.1-2.0); Eosinophils # 0.1 Kmm3 (0.0-0.4); Eosinophils % 0.6 % (0.1-12.0); Hematocrit 43.2 % (37.0-47.0); Immature Granulocytes % 2.4 %; Lymphocytes # 1.3 K/mm3 (0.7-4.5); Lymphocytes % 14.9 % (10-50); Mean Corpuscular HGB Conc 32.4 g/dL (31.8-35.4); Mean Corpuscular Hemoglobin 31.3 pg (27.0-31.2); Mean Corpuscular Volume 96.6 fl (81-99); Mean Platelet Volume 10.2 fl (7.4-10.4); Monocytes # 0.6 K/mm3 (0.1-1.0); Monocytes % 6.6 % (1.7-9.3); Neutrophils # 6.3 K/mm3 (1.8-7.8); Neutrophils % 74.4 % (37.0-80.0); Nucleated Red Blood Cells # 0 10^3/uL; Nucleated Red Blood Cells % 0 %; Platelet Count 183 K/mm3 (142-424); Red Blood Count 4.47 M/mm3 (4.20-5.40); Red Cell Distribution Width 14.3 % (11.5-17.5); White Blood Count 8.4 K/mm3 (4.8-10.8)
[2025-02-20 20:26] LABS: Albumin Level 3.9 g/dl (3.5-5.0); Chloride 99 mmol/L (98-107); Sodium 137 mmol/L (136-145)
[2025-02-20 20:27] LABS: Potassium 3.9 mmoL/L (3.5-5.1)
[2025-02-20 20:29] LABS: Alanine Aminotransferase 37 U/L (12-78); Albumin/Globulin Ratio 1.2 (1.1-1.8); Alkaline Phosphatase 131 U/L (38-126); Anion Gap 4.9 mEq/L (5-15); Aspartate Amino Transferase 49 U/L (14-36); Bilirubin,Total 0.6 mg/dl (0.2-1.3); Blood Urea Nitrogen 24 mg/dl (7-17); Carbon Dioxide 37 mmol/L (22.0-30.0); Creatinine Clearance Estimated 66 mL/min (50-200); Estimated Glomerular Filt Rate 57 ml/min (>60); GFR (African American) 69 ML/MIN (>60); Globulin 3.2 g/dL (1.3-3.2); Glucose 216 mg/dl (74-100); Total Protein,Serum 7.1 g/dl (6.3-8.2)
[2025-02-20] MEDS: SODIUM CHLORIDE 0.9% 10ML SYR (RAD ONLY) 10 ML IV (20:44)
[2025-02-20] MEDS: 0.9 % SODIUM CHLORIDE 50 ML VIAL IV (20:44)
[2025-02-20] MEDS: IOPAMIDOL-370 (76%);100ML BOTTLE 70 ML IV (20:44)
[2025-02-20 20:45] LABS: Troponin I < 0.01 ng/ml (0.00-0.034)
[2025-02-20] MEDS: MAGNESIUM SULFATE IN WATER 2 GM/50 ML PIGGYBACK IV (21:33)
[2025-02-20] MEDS: DEXAMETHASONE 4MG/ML 5ML MDV 10 MG IV (21:33)
--- NOTE | 2025-02-20 21:33 | PC.NURSE ---
called for a transfer for this patient. said they would give us a call back
[2025-02-20] MEDS: IPRATROPIUM/ALBUTEROL 3 ML NEB 9 ML IH (22:05)
[2025-02-20] MEDS: AZITHROMYCIN 250MG TABLET 500 MG PO (22:11)
[2025-02-20] MEDS: CEFTRIAXONE 1 GM 1 GM in 0.9 % SODIUM CHLORIDE 50 ML IV (22:11)
[2025-02-20 23:58] LABS: Reflex Lactic Add Lactic Reflex
[2025-02-21 00:01] VITALS: BP 106/59; PULSE 78; RESP 13; O2SAT 95
--- NOTE | 2025-02-21 01:13 | PC.NURSE ---
pt requesting to ambulate to restroom.
[2025-02-21 01:46] VITALS: BP 121/76; PULSE 80; RESP 18; TEMP 36.6; O2SAT 92
== END 2025-02-21 01:52 | disposition short-term general hospital (02) ==
PROVIDERS: Emergency Provider Emergency Medicine
DX: J18.9 Pneumonia, unspecified organism (principal); J44.0 Chronic obstructive pulmonary disease with (acute) lower respiratory infection; J90 Pleural effusion, not elsewhere classified; C34.91 Malignant neoplasm of unspecified part of right bronchus or lung; J39.8 Other specified diseases of upper respiratory tract; E83.52 Hypercalcemia
CPT/HCPCS: 71045; 71275; 80053; 82803; 84484; 85025; 93005; 96365; 96367; 96375; 99285; J0696; J1100; J3475; Q9967